=== PATIENT | female | born 1990 | race Caucasian/White ===

== ENCOUNTER 2019-03-07 20:08 | Emergency (ER) | payer OTHER, MEDICAID ==
[~2019-03-07] VITALS: Ht 162.6 cm; Wt 81.7 kg
[~2019-03-07 20:08] MED LIST: BUSPAR30 MG PO; HYDROCODON-ACE1 EAC7; HYDROXYZINE HCL25 M1 PO; NORCO 5-325 TA1 EACH PO; PREDNISONE50 MG PO; PRENATAL; TRILEPTAL150 MG PO; TYLENOL EX-STR500 M2; ZPAK PO
[2019-03-07 20:13] VITALS: BP 153/100
[2019-03-07] MEDS ORDERED: BENADRYL25 MG PO (20:19)
[2019-03-07 20:50] LABS: URINE BLOOD 3+ (Negative); URINE CLARITY SL CLOUDY; URINE COLOR YELLOW; URINE GLUCOSE-RANDOM NEGATIVE (Negative); URINE KETONES NEGATIVE (Negative); URINE LEUKOCYTES-REFLEX 1+ (Negative); URINE NITRITE-REFLEX NEGATIVE (Negative); URINE PROTEIN TRACE (Negative); URINE SPECIFIC GRAVITY 1.025 (1.005-1.030); URINE UROBILINOGEN 0.2 E.U./dl (0.2-1.0)
[2019-03-07 20:52] LABS: ICTOTEST (BILI CONFIRMATORY) Negative (Negative); URINE BILIRUBIN 1+ (Negative)
[2019-03-07 20:58] LABS: SQUAMOUS >10 Many /LPF (0-3)
[2019-03-07 20:59] LABS: MUCUS 4-6 Moderate strn/LPF (None Seen); URINE RBC >20 Many /HPF (0-2); URINE WBC-REFLEX 0-5 Rare /HPF (0-5)
[2019-03-07 21:00] LABS: BACTERIA-REFLEX 1-9 Few /HPF (None Seen); CASTS None Seen /LPF (None Seen); CRYSTALS None Seen /LPF (None Seen)
== END 2019-03-07 23:30 | disposition left against medical advice (07) ==
LOC: M.ERS 20:08
PROVIDERS: Nurse Practitioner Family
DX: N93.9 Abnormal uterine and vaginal bleeding, unspecified (principal); M25.559 Pain in unspecified hip; G89.29 Other chronic pain; F41.9 Anxiety disorder, unspecified; F32.9 Major depressive disorder, single episode, unspecified; Z91.010 Allergy to peanuts; Z91.018 Allergy to other foods; Z88.6 Allergy status to analgesic agent; Z88.8 Allergy status to other drugs, medicaments and biological substances